=== PATIENT | male | born 1985 | race Two or more races ===

== ENCOUNTER 2022-12-13 15:07 | Emergency (ER) | payer SELFPAY ==
[~2022-12-13] VITALS: Ht 185.4 cm; Wt 111.1 kg
[2022-12-13] MEDS ORDERED: IV NS 0.9% 1,000 ML BAG IV ONE (15:30)
--- NOTE | 2022-12-13 15:48 | NUR ---
PT CAME IN DUE TO OVERDOSE OF LORAZEPAM AND ADERRAL. PT IS TACHYCARDIC AT PRESENT, PT WAS ASKED TO GIVE SAMPLE OF HIS URINE. URINE WAS COLLECTED AND SENT TO LAB
--- NOTE | 2022-12-13 15:50 | NUR ---
PT PUT ON MONITOR AND PULSE, MADE COMFORTABLE.
[2022-12-13 16:41] LABS: BILIRUBIN,URINE NEGATIVE (NEGATIVE); COLOR,URINE YELLOW (YELLOW); LEUKOCYTE ESTERASE ,URINE NEGATIVE (NEGATIVE); NITRITE, URINE NEGATIVE (NEGATIVE); PROTEIN,URINE NEGATIVE (NEGATIVE); UGLUCOSE NEGATIVE (NEGATIVE); UROBILINOGEN,URINE 0.2 EU/dL (0.2)
[2022-12-13 16:41] LABS: BASOPHILS % (AUTO) 0.3 % (0.0-2.0); EOSINOPHILS % (AUTO) 1.3 % (0.0-6.0); HEMATOCRIT 43 % (39-51); HEMOGLOBIN 13.6 g/dL (13.5-17.5); LYMPHOCYTES # (AUTO) 1.1 K/uL (0.8-4.8); LYMPHOCYTES % (AUTO) 10.7 % (20.0-44.0); MEAN CORPUSCULAR HGB CONC 31 g/dl (31.0-36.0); MEAN CORPUSCULAR VOLUME 100 fL (80-96); MONOCYTES # (AUTO) 0.3 K/uL (0.1-1.30); NEUTROPHILS # (AUTO) 8.7 K/uL (1.8-8.9); NEUTROPHILS % (AUTO) 84.7 % (43.0-81.0); PLATELET COUNT (AUTO) 282 K/uL (150-450); RED BLOOD CELL COUNT(AUTO) 4.32 MIL/uL (4.5-6.0); WHITE BLOOD COUNT (AUTO) 10.2 K/uL (4.3-11.0)
[2022-12-13 16:52] LABS: ALANINE AMINOTRANSFERASE 39 U/L (12-78); ALBUMIN 4.1 g/dL (3.4-5.0); ALKALINE PHOSPHATASE 63 U/L (46-116); ASPARTATE AMINOTRANSFERASE 26 U/L (15-37); BILIRUBIN,DIRECT 0.1 mg/dL (0.0-0.2); BILIRUBIN,TOTAL 0.2 mg/dL (0.2-1.0); CALCIUM, SERUM 8.9 mg/dL (8.5-10.1); CARBON DIOXIDE 18 mmol/L (21-32); CHLORIDE 106 mmol/L (98-107); CREATININE 1.2 mg/dL (0.6-1.3); GLUCOSE 119 mg/dL (74-106); POTASSIUM 3.7 mmol/L (3.5-5.1); SODIUM SERUM 141 mmol/L (136-145); TOTAL PROTEIN, SERUM 6.8 g/dL (6.4-8.2); UREA NITROGEN, BLOOD 14 mg/dL (7-18)
[2022-12-13 16:59] LABS: ALCOHOL, BLOOD < 3 mg/dL (0-0)
[2022-12-13 19:16] VITALS: BP 115/65
== END 2022-12-13 19:16 | disposition home or self-care (01) ==
LOC: ER 15:25
DX: R45.0 Nervousness (principal); T43.621A Poisoning by amphetamines, accidental (unintentional), initial encounter; F17.200 Nicotine dependence, unspecified, uncomplicated; Y92.219 Unspecified school as the place of occurrence of the external cause
CPT/HCPCS: 99284; 96360; 96361; 93005; 85025; 80048; 80076; 81003; 36415; 80143; 80320; 80307; J7030; G0480